=== PATIENT | male | born 1990 | race Caucasian/White ===

== ENCOUNTER → 2016-05-23 | Outpatient (REF) ==
[~2016-05-23] MED LIST: NO HOME MEDICATIONS
== END ==
LOC: WSOH 11:44
DX: Z02.1 Encounter for pre-employment examination (principal)

== ENCOUNTER → 2016-05-24 | Outpatient (REF) | LOC: WSOH 08:51 | DX: Z02.1 Encounter for pre-employment examination (principal) ==